=== PATIENT | male | born 1955 | race Caucasian/White ===

== ENCOUNTER 2022-02-13 10:43 | Emergency (ER) | payer MEDICARE, OTHER ==
[2022-02-13] MEDS ORDERED: Acetaminophen 325 MG Tab PO ONE (12:05)
== END 2022-02-13 13:09 | disposition home or self-care (01) ==
LOC: JD.ED 10:43
DX: S70.11XA Contusion of right thigh, initial encounter (principal); F17.210 Nicotine dependence, cigarettes, uncomplicated; Z79.899 Other long term (current) drug therapy; W55.22XA Struck by cow, initial encounter
CPT/HCPCS: 73552-26-RT; 73552-RT; 99282; 99283